=== PATIENT | female | born 1945 | race Caucasian/White ===

== ENCOUNTER 2018-09-01 13:13 | Inpatient (IN) | payer MEDICARE, MEDICAID ==
[2018-09-01 14:08] LABS: Mean Corpuscular HGB CONC 32.6 g/dL (32.0-36.0); Mean Corpuscular Hemoglobin 31.2 pg (27.0-31.0); Mean Corpuscular Volume 95.7 fL (78.0-98.0); Platelet Count 143 thou/uL (130-400); RBC Distribution Width 12.5 % (11.5-14.5); Red Blood Cell (RBC) Count 3.83 mill/uL (4.20-5.40); White Blood Cell (WBC) Count 11.3 thou/uL (4.8-10.8)
[2018-09-01 14:27] LABS: ALT (SGPT) 24 U/L (8-55); AST (SGOT) 57 U/L (5-34); Alkaline Phosphatase 87 U/L (40-150); Anion Gap 14 mmol/L (10-20); BUN (Urea Nitrogen) 83 mg/dL (9.8-20.1); Band 23 % (5-11); Bilirubin, Total 0.3 mg/dL (0.2-1.2); Calc. Creatinine Clearance 0 mL/min (70-130); Carbon Dioxide 23 mmol/L (23-31); Chloride 111 mmol/L (98-107); Estimated GFR-MDRD 21; Globulin 3.3 g/dL (2.4-3.5); Glucose 294 mg/dL (83-110); Lymphocytes 5 % (21-51); MDiff Complete? YES; Metamyelocyte 2 % (0-0); Monocytes 10 % (0-10); Neutrophil 57 % (42-75); Platelet Morphology Comment Appears Adequate; Potassium 4.4 mmol/L (3.5-5.1); Protein, Total 6.3 g/dL (6.0-8.3); RBC Morphology Normal; Reactive Lymphocytes 2 % (0-10); Sodium 144 mmol/L (136-145)
[2018-09-01] MEDS ORDERED: Dextrose 50% Abboject 50 ML SYRINGE SLOW IVP PRN (17:05)
[2018-09-01] MEDS ORDERED: Acetaminophen 325 MG TAB PO PRN (17:05)
[2018-09-01] MEDS ORDERED: Bisacodyl 5 MG TAB PO PRN (17:05)
[2018-09-01] MEDS ORDERED: Dextrose 5% in Water 1,000 ML IV PRN (17:05)
[2018-09-01] MEDS ORDERED: Ziprasidone 20 MG VIAL IM PRN (17:16)
[2018-09-01] MEDS ORDERED: Sterile Water 10 ML VIAL FS PRN (17:24)
[2018-09-01] MEDS ORDERED: Ziprasidone 20 MG VIAL ONE (17:32)
--- NOTE | 2018-09-01 17:34 | HP ---
PRIMARY CARE PROVIDER: Dr. Quincy Mcneill. CHIEF COMPLAINT: Abnormal labs. HISTORY OF PRESENT ILLNESS: Ms. Colon is a pleasant 73-year-old lady, who was seen at [facility] on September 01, 2018 following transfer from [facility] in [place]. The patient is unable to provide any significant history. Collateral history was obtained from review of medical charts, discussion with emergency room physician and discussion with the patient's son over the telephone. The patient's son reports that Ms. Colon has been at [facility] for the last few years. He reports that she got a call today that her blood work was abnormal and she was being sent to the emergency room at [facility] in [place]. According to paperwork accompanying Ms. Colon, she was found to have a blood urea nitrogen of 94 and creatinine of 2.54. Her blood urea nitrogen and creatinine were normal in September 2017. REVIEW OF SYSTEMS: Could not be completed because the patient is not responding verbally. PAST MEDICAL HISTORY: Arthritis, dementia, depression, diabetes mellitus, gastroesophageal reflux disease, herpes simplex, dyslipidemia, hypertension, and renal disorder. PSYCHIATRIC HISTORY: Schizophrenia. PAST SURGICAL HISTORY: Tubal ligation. SOCIAL HISTORY: No history of tobacco use, alcohol use, or recreational drug use. FAMILY HISTORY: Could not obtain. CODE STATUS: I discussed her code status with her son, who is also her medical power of associate professor of archaeology. He reports that she is full code. ALLERGIES: NO KNOWN DRUG ALLERGIES. CURRENT MEDICATIONS: 1. Celexa 20 mg daily. 2. UTI-Stat 30 mL daily. 3. Loratadine 10 mg daily as needed. 4. Depakote 500 mg 2 times a day. 5. Mylanta 10 mL every 2 hours as needed. 6. Haldol 1.25 mL IM every 30 days. 7. Tramadol 300 mg in the morning. 8. Fenofibrate 145 mg daily. 9. Zetia 10 mg daily. 10. Benztropine 1 mg 2 times a day. 11. Losartan 50 mg daily. 12. Amlodipine 5 mg daily. 13. Folic acid 1 mg daily. 14. Trazodone 150 mg at bedtime. 15. Lipitor 20 mg at bedtime. 16. Ketotifen one drop to both eyes once daily. PHYSICAL EXAMINATION: GENERAL: On examination, Ms. Colon is awake and alert, not in acute distress. VITAL SIGNS: Blood pressure is 111/93, pulse 84, respiratory rate 20, and oxygen saturation 95% on room air. She is afebrile. EYES: No scleral icterus. No conjunctival pallor. ENT: Dry mucosal membranes. No oropharyngeal erythema or exudates. NECK: Supple, nontender. Trachea is midline. RESPIRATORY: Accessory muscles of breathing are not active. Chest wall movements are symmetric bilaterally. LUNGS: Clear to auscultation without wheeze, rhonchi, or crepitations. CARDIOVASCULAR: S1 and S2 are heard, regular. Peripheral pulses are palpable. No carotid bruit. No pericardial rub. ABDOMEN: Soft, nontender. Bowel sounds heard. No hepatomegaly. NEUROLOGIC: Full neurologic examination not possible secondary to the patient's noncooperation. No facial droop. Deep tendon reflexes 2+. Plantars downgoing bilaterally. MUSCULOSKELETAL: The patient is moving all 4 extremities. SKIN: No rashes or subcutaneous nodules. LYMPHATIC: No cervical lymphadenopathy. PSYCHIATRIC: Normal mood, unable to assess orientation to person, place, or time. LABORATORY DATA: Ms. Colon's labs and investigations were reviewed. A 12- lead electrocardiogram was normal. She had a chest x-ray that was unremarkable. However, CT scan of the abdomen and pelvis showed bilateral hydroureteronephrosis without an obstructing renal or ureteral calculi identified. She also had prominent distention of the urinary bladder. Radiologist recommends correlation for bladder outlet obstruction. She was also found to have right lower lobe airspace disease suspicious for pneumonia and/or aspiration. She has leukocytosis with 12,800 white cells, of which 10,200 granulocytes. Platelet count is 145,000. Blood urea nitrogen is 91, creatinine 2.68. Lactic acid is elevated at 3.2. Urinalysis is positive for large amount of leukocyte esterase and bacteria. ASSESSMENT AND PLAN: Ms. Colon is a pleasant 73-year-old lady, who was seen at [facility] on September 01, 2018. Her problem list includes : 1. Sepsis: Ms. Colon is presenting with sepsis, most likely secondary to urinary tract infection as well as pneumonia. She will be admitted to the hospital for further management. 2. Urinary tract infection: The patient has received ceftriaxone and levofloxacin at [facility], which I will continue. 3. We will await urine cultures. 4. Pneumonia: We will treat the patient with ceftriaxone, levofloxacin, and vancomycin. 5. Acute kidney injury: Most likely postrenal, given the bilateral hydroureteronephrosis seen on CT scan. We will consult Urology Service for opinion and help with management. 6. Diabetes mellitus type 2: We will start Accu-Cheks and insulin sliding scale. 7. Dyslipidemia: We will continue home medications. 8. Hypertension: We will monitor vital signs and titrate antihypertensives as needed. Many thanks for allowing me to participate in your patient's care. Please feel free to contact me with any questions or concerns. LEVEL OF RISK: Moderate. LEVEL OF COMPLEXITY: Moderate. Job ID: [id number] MTDD
[2018-09-01] MEDS: Sodium Chloride 0.9% 1,000 ML IV SCH (17:46)
[2018-09-01 18:02] LABS: Lactic Acid 2.6 mmol/L (0.5-2.2)
[2018-09-01] MEDS ORDERED: cefTRIAXone\\ROCEPHIN 1 GM VIAL ONE (23:58)
[2018-09-02] MEDS: cefTRIAXone\\ROCEPHIN 1 GM in Sodium Chloride 0.9% 100 ML IVPB SCH ×2 (00:29→19:12)
--- NOTE | 2018-09-02 05:09 | CON ---
DATE OF CONSULTATION: 09/01/2018 REASON FOR CONSULTATION: 1. Urinary retention. 2. Apparent obstructive uropathy associated with renal insufficiency. 3. Postmenopausal status, not on hormone replacement therapy. HISTORY OF PRESENT ILLNESS: Ms. Evelyn Colon is a 73-year-old white female patient, brought in from the [facility] in [place]. The patient was seen in the [facility] Emergency Room earlier in the day and ultimately brought to the [facility] for further evaluation and treatment. The patient had some routine lab work which was done showing elevated blood urea nitrogen of 94 and creatinine of 2.54. She had normal laboratory work on 09/14/2017. She does have extensive medical history including arthritis, dementia, schizophrenia, herpes, some type of renal disorder, and diabetes mellitus. She also apparently has a diagnosis of bipolar disorder. The patient herself is not very informative, but I have gleaned most of what I know about her from review of [facility] and [facility] records. I did glean a small amount of information from physical examination of the patient as well. PAST MEDICAL HISTORY: 1. Arthritis. 2. Dementia. 3. Depression. 4. Diabetes mellitus. 5. Gastroesophageal reflux disease. 6. Herpes simplex. 7. Hyperlipidemia. 8. Hypertension. 9. Apparent acute renal disorder. 10. Schizophrenia. PAST SURGICAL HISTORY: Includes only a tubal ligation procedure. SOCIAL HISTORY: The patient resides in the [facility] in [place]. Her smoking status is completely unknown. The patient is not currently user of alcohol or drugs other than those that are prescribed as our facility does not allow that. FAMILY MEDICAL HISTORY: Unknown and noncontributory. GYNECOLOGIC HISTORY: Unknown. The patient is postmenopausal. ALLERGIES: NO KNOWN DRUG ALLERGIES. MEDICATIONS: Complete medication list includes the following, 1. Celexa 20 mg p.o. daily. 2. UTI-Stat 30 mL oral daily. 3. Loratadine 10 mg p.o. daily. 4. Depakote 500 mg twice daily. 5. Mylanta chewable every 2 hours p.r.n. upset stomach. 6. Haldol 125 mg IM every 30 days. 7. Tramadol 300 mg p.o. daily. 8. Fenofibrate 145 mg oral daily in the evening. 9. Zetia 10 mg p.o. at bedtime. 10. Benztropine 1 mg p.o. twice daily. 11. Losartan 50 mg p.o. daily. 12. Amlodipine 5 mg p.o. daily. 13. Folic acid 1 mg per day. 14. Trazodone 150 mg p.o. daily. 15. Lipitor 20 mg p.o. daily. 16. Ketotifen fumarate ophthalmic drops 0.25% one drop to each eye once daily. PHYSICAL EXAMINATION: VITAL SIGNS: Blood pressure is 100/68, pulse is 91, respirations 18, O2 saturations 97% on room air, with a normal oral temperature of 98.0. HEAD, EYES, EARS, NOSE, AND THROAT: Extraocular movements are intact. Sclerae are anicteric. Oropharynx essentially clear. The patient is edentulous. She is able to talk, but not able to make much in the way of intelligent speech from her. NECK: Supple. LUNGS: Clear to auscultation bilaterally. CARDIAC: There is a regular rate and rhythm. traffic monitor specialist shows a sinus rhythm. There is no evidence of a pacemaker implant or previous coronary bypass. ABDOMEN: Soft, obese, and nontender. Reportedly, the patient underwent previous tubal ligation operation. I am unable to find a scar associated with that. The umbilicus is without lesion. I do not appreciate umbilical hernia. There is no Pfannenstiel type incision or other scar evidence. Percussion reveals increased resonance in all four quadrants. PELVIC: A Turner catheter is found in place, it is draining straw-colored clear urine with a good productive rate, produced over 2 L since catheter placement consistent with the patient's retention history and findings on previous CT scan. There is no gross blood, purulence, or other abnormalities to the urine. No particulates observed. Periurethrally, there is some redness consistent with urethral caruncle or urethral prolapse even. The patient has postmenopausal changes to the vagina as well. Digital rectal examination is not performed. EXTREMITIES: Do not appear to be edematous. There is no evidence of pitting edema. SKIN: The patient's skin is relatively thin. She appears to be having reasonably good health cares. I am not appreciating any significant skin breakdowns distally. LABORATORY STUDIES: I reviewed the results from the [facility] in [place], which shows admission glucose there of 392, blood urea nitrogen of 91, and creatinine of 2.68. This is consistent with the patient's previous elevation of her glucose at 182 last year. Blood urea nitrogen significantly increased from 18 last year and creatinine significantly increased from the 1.05 value of last year. Urinalysis was performed in the emergency department of [facility] and urine gravity was 1.010. The pH of 5.5. There was 500 mg/dL of glucose. The blood in the urine showed trace value with 1 to 2 red cells seen under microscopic evaluation, greater than 50 white cells per high-power field also observed. Squamous epithelial cells were seen rarely and urine bacteria was identified as moderate. Hematologic profile there showed a white count of 12.8, hemoglobin of 12.2, and hematocrit of 37.3. ASSESSMENT: 1. Urinary retention, likely secondary to multifactorial causes. In this particular patient, attention to the patient's bowel program and further low estrogen status is indicated. The patient currently has indwelling Turner catheter is largely resolved except for postobstructive diuresis, which needs to be evaluated for. I would recommend leaving this Turner catheter in place at discharge and this maybe removed in my office. Over the short term, postobstructive diuresis should be assessed and fluid replacement should be performed at least a rate of 0.5 mL per mL of voided urine. The patient's magnesium level may drop and magnesium assessment is indicated. 2. Postmenopausal atrophic vaginitis. The patient should be placed on Premarin cream to be applied around the urethral line nightly basis. This should be followed at discharge and for life. 3. Assessment of outlet obstruction. This is likely urethral stricture, secondary to low estrogen status. The patient may follow up in my clinic for cystoscopic assessment. She may follow up in my office in 2 to 3 weeks after she has had appropriate levels of estrogen applied. 4. Concerns for urinary tract infection based on urinalysis from earlier today. Culture of the patient's urine may be illuminating; however, I am not appreciating much in the way of purulence on the patient's current urine production. Over 70 minutes of was spent in evaluation of this patient today. Job ID: [id number]
[2018-09-02 05:13] LABS: Anion Gap 12 mmol/L (10-20); BUN (Urea Nitrogen) 51 mg/dL (9.8-20.1); Calc. Creatinine Clearance 35 mL/min (70-130); Calcium 8.6 mg/dL (7.8-10.44); Carbon Dioxide 24 mmol/L (23-31); Chloride 110 mmol/L (98-107); Estimated GFR-MDRD 32; Glucose 207 mg/dL (83-110); Potassium 3.8 mmol/L (3.5-5.1); Sodium 142 mmol/L (136-145)
[2018-09-02 05:23] LABS: Band 19 % (5-11); Hemoglobin 10.7 g/dL (12.0-16.0); Lymphocytes 14 % (21-51); MDiff Complete? YES; Mean Corpuscular HGB CONC 33.1 g/dL (32.0-36.0); Mean Corpuscular Hemoglobin 31.7 pg (27.0-31.0); Mean Corpuscular Volume 95.8 fL (78.0-98.0); Mean Platelet Volume 9.6 fL (7.4-10.4); Metamyelocyte 4 % (0-0); Monocytes 11 % (0-10); Neutrophil 52 % (42-75); Platelet Count 142 thou/uL (130-400); Platelet Morphology Comment Appears Adequate; RBC Distribution Width 12.6 % (11.5-14.5); Red Blood Cell (RBC) Count 3.38 mill/uL (4.20-5.40); White Blood Cell (WBC) Count 12.3 thou/uL (4.8-10.8)
[2018-09-02] MEDS: Sodium Chloride 0.9% 1,000 ML IV SCH ×2 (08:32→20:25)
--- NOTE | 2018-09-02 14:24 | PDOC.PN ---
- Subjective Encounter Start Date: 09/02/18 Encounter Start Time: 12:00 CC; ABNORMAL LABS SUBJECTIVE; PATIENT SEEN AND EVAL. SHE IS A POOR HISTORIAN DUE TO SCHIZOPHRENIA. PER NURSE, NO ACUTE EVENTS OVERNIGHT. ROS; LIMITED DUE TO SCHIZOPHRENIA - Objective Resuscitation Status - Order Detail: 09/01/18 17:05 Resuscitation Status Routine Resuscitation Status: FULL: Full Resuscitation Discussed with: earle DUMONT Reviewed: Yes Vital Signs & Weight: Vital Signs (12 hours) Temp Pulse Resp BP Pulse Ox 09/02/18 13:18 98.3 F 62 18 103/48 L 98 Weight Weight 154 lb 8.705 oz Result Diagrams: 09/02/18 04:04 09/02/18 04:04 Additional Labs: Accuchecks 09/02/18 13:38 POC Glucose 189 H Radiology Reviewed by me: Yes EKG Reviewed by me: Yes Phys Exam - Physical Examination HEENT: PERRLA, moist MMs, oral pharynx no lesions Neck: no nodes, no JVD, supple Respiratory: no wheezing, no rales, no rhonchi, clear to auscultation bilateral Cardiovascular: RRR, no significant murmur, no rub Gastrointestinal: soft, non-tender, no distention Musculoskeletal: no edema, pulses present Neurological: non-focal, normal sensation Deviation from normal: ALERT AND ORIENTED IN PERSON. DECREASED ATTENTION Skin: no rash, normal turgor, cap refill <2 seconds Dx/Plan (1) Sepsis secondary to UTI Code(s): A41.9 - SEPSIS, UNSPECIFIED ORGANISM; N39.0 - URINARY TRACT INFECTION, SITE NOT SPECIFIED Status: Acute Plan: CONTINUE CURRENT ABx. MONITOR CULTURES (2) Pneumonia Code(s): J18.9 - PNEUMONIA, UNSPECIFIED ORGANISM Status: Acute Plan: CAP. CONTINUE ROCEPHIN. (3) KAI (acute kidney injury) Code(s): N17.9 - ACUTE KIDNEY FAILURE, UNSPECIFIED Status: Acute Plan: POSTRENAL. IMPROVING (4) Obstructive uropathy Code(s): N13.9 - OBSTRUCTIVE AND REFLUX UROPATHY, UNSPECIFIED Status: Acute Plan: HYDRONEPHROSIS. UROLOGY FOLLOWS. CONTINUE MUSE (5) Schizophrenia Code(s): F20.9 - SCHIZOPHRENIA, UNSPECIFIED Status: Chronic Plan: CHRONIC BUT STABLE. NO AGITATION. SITTER. PSYCH MEDS (6) GERD (gastroesophageal reflux disease) Code(s): K21.9 - GASTRO-ESOPHAGEAL REFLUX DISEASE WITHOUT ESOPHAGITIS Status: Chronic (7) Anemia Code(s): D64.9 - ANEMIA, UNSPECIFIED Status: Chronic Qualifiers: Anemia type: unspecified type Qualified Code(s): D64.9 - Anemia, unspecified (8) DM type 2 (diabetes mellitus, type 2) Status: Chronic (9) Essential hypertension Code(s): I10 - ESSENTIAL (PRIMARY) HYPERTENSION Status: Chronic (10) Dementia Code(s): F03.90 - UNSPECIFIED DEMENTIA WITHOUT BEHAVIORAL DISTURBANCE Status: Chronic - Plan cont current plan of care CONTINUE CURRENT CARE. MONITOR CULTURES. CODE; FULL CORE; SCD DISP; MED SURG PROG; GUARDED CLINICAL STATUS; GUARDED EXPECTED DISCHARGE; TBD TOTAL TIME SPENT; 35 MINUTES DATE OF SERVICE; 09/02/2018
[2018-09-02 14:26] LABS: Vancomycin, Trough 8.4 ug/mL
[2018-09-02] MEDS ORDERED: Prevnar 13-Val Conj/PF 0.5 ML SYRINGE IM ONE (14:45)
[2018-09-02 15:33] LABS: Hemoglobin 11.1 g/dL (12.0-16.0); Mean Corpuscular HGB CONC 32.9 g/dL (32.0-36.0); Mean Corpuscular Hemoglobin 31.4 pg (27.0-31.0); Mean Corpuscular Volume 95.3 fL (78.0-98.0); Mean Platelet Volume 9.1 fL (7.4-10.4); Platelet Count 154 thou/uL (130-400); RBC Distribution Width 12.5 % (11.5-14.5); Red Blood Cell (RBC) Count 3.55 mill/uL (4.20-5.40); White Blood Cell (WBC) Count 12.9 thou/uL (4.8-10.8)
[2018-09-02 15:52] LABS: ALT (SGPT) 30 U/L (8-55); AST (SGOT) 63 U/L (5-34); Albumin 2.6 g/dL (3.4-4.8); Alkaline Phosphatase 70 U/L (40-150); Anion Gap 11 mmol/L (10-20); BUN (Urea Nitrogen) 38 mg/dL (9.8-20.1); Bilirubin, Total 0.4 mg/dL (0.2-1.2); Calc. Creatinine Clearance 41 mL/min (70-130); Calcium 8.5 mg/dL (7.8-10.44); Carbon Dioxide 24 mmol/L (23-31); Chloride 110 mmol/L (98-107); Estimated GFR-MDRD 38; Globulin 2.8 g/dL (2.4-3.5); Glucose 185 mg/dL (83-110); Potassium 4.2 mmol/L (3.5-5.1); Protein, Total 5.4 g/dL (6.0-8.3); Sodium 141 mmol/L (136-145)
[2018-09-02 15:57] LABS: Band 15 % (5-11); Lymphocytes 17 % (21-51); MDiff Complete? YES; Metamyelocyte 1 % (0-0); Monocytes 5 % (0-10); Myelocyte 2 % (0-0); Neutrophil 59 % (42-75); Platelet Morphology Comment Appears Adequate; Polychromasia SLIGHT = 2-3 cells (100X) (0-2/hpf)
[2018-09-02] MEDS: Vancomycin HCl 1 GM in Premix Bag 1 BAG IVPB SCH (19:15)
[2018-09-02] MEDS: traZODone HCl 150 MG TAB PO SCH (20:22)
[2018-09-02] MEDS: Ezetimibe 10 MG TAB PO SCH (20:22)
[2018-09-02] MEDS: Atorvastatin Calcium 20 MG TAB PO SCH (20:22)
[2018-09-02] MEDS: Ketotifen Fumarate 0.025% Ophth Soln 5 ml Bottle EA EYE SCH (20:22)
[2018-09-02] MEDS ORDERED: Amoxicillin/Potassium Clav 875 MG TAB PO SCH (21:30)
[2018-09-02] MEDS: Estrogens, Conjugated 30 GM TUBE VAG SCH (22:12)
--- NOTE | 2018-09-03 03:39 | CON ---
DATE OF CONSULTATION: 09/01/2018 DATE: Date of initial consultation is 09/01/2018, date of progress note is 09/02/2018. REASON FOR CONSULTATION: 1. Urinary retention. 2. Apparent obstructive uropathy with associated renal insufficiency. 3. Urinary tract infection. 4. Postmenopausal status, not on hormonal replacement therapy. BRIEF HISTORY: Ms. Evelyn Colon is a 73-year-old white female, brought in from the [facility] in [place]. She was seen in the [facility] Emergency Department earlier in the day on 09/01/2018, and had a urine culture drawn there, which has grown out enterococcus. The patient had urinary retention with very distended bladder. A Turner catheter was placed and this has resolved the patient's acute renal insufficiency. At the present time, the patient has some signs and symptoms of postobstructive diuresis and has been diuresing well. Her electrolytes are being followed. PHYSICAL EXAMINATION: VITAL SIGNS: The patient is afebrile with current temperature of 98.3, pulse 79, respirations 18, O2 saturation on room air is 90%, blood pressure is 108/51. GENERAL: This is a pleasant white female with dementia. She appears a little more lucid today than yesterday. HEAD, EYES, EARS, NOSE, AND THROAT: Extraocular movements are intact. Sclerae anicteric. Oropharynx is clear. NECK: Supple. LUNGS: Clear to auscultation bilaterally. CARDIAC: Regular rhythm of about 79. ABDOMEN: Soft, obese, and nontender. Percussion reveals still some increased resonance. The patient has been tolerating a diet. PELVIC: Indwelling Turner catheter remains in place and is now draining essentially clear urine with no evidence of a blood clot particulates or purulence. LABORATORY STUDIES: The urine culture obtained at the [facility] emergency Department demonstrates the presence of enterococcus species in the patient's urine. The patient's electrolytes improved significantly. Blood urea nitrogen down to 38 from admission value of 83, creatinine down to 1.36 from admission creatinine of 2.3. Hematologic profile shows white count currently standing at 12.9 with a hemoglobin of 11.1 and hematocrit of 33.8. ASSESSMENT AND PLAN: 1. This patient has urethral outlet issue, likely urethral stricture disease secondary to postmenopausal status and should present to clinic for cystoscopic assessment, possible urethral calibration. 2. Postmenopausal status, not on estrogen products. I am recommending urethral or periurethral application of Premarin or Estrace cream at least twice a day. 3. Followup: The patient should follow up in my office for cystoscopy and possible calibration as outlined above. 4. Turner catheter. DISPOSITION: Plan would be to leave the patient's current Turner catheter in place at discharge. Infectious disease concerns: The patient has been on Rocephin for her presumed UTI, although urine is quite clear and has responded to simple drainage as well as ceftriaxone administration. The patient's enterococcus infection could be covered by ampicillin or an extended spectrum penicillin medications such as Augmentin. I am recommending due to the possibility of tissue involvement, this patient will be given a 2-week course of Augmentin. TIME SPENT: Over 35 minutes of consultation assessment time was spent in evaluation of this patient today. Job ID: [id number]
[2018-09-03 06:38] LABS: Mean Corpuscular HGB CONC 32.2 g/dL (32.0-36.0); Mean Corpuscular Volume 96.3 fL (78.0-98.0); Mean Platelet Volume 9.1 fL (7.4-10.4); Platelet Count 179 thou/uL (130-400); RBC Distribution Width 12.7 % (11.5-14.5); Red Blood Cell (RBC) Count 3.89 mill/uL (4.20-5.40)
[2018-09-03 06:59] LABS: ALT (SGPT) 39 U/L (8-55); AST (SGOT) 75 U/L (5-34); Albumin 2.6 g/dL (3.4-4.8); Alkaline Phosphatase 73 U/L (40-150); Anion Gap 12 mmol/L (10-20); BUN (Urea Nitrogen) 28 mg/dL (9.8-20.1); Bilirubin, Total 0.4 mg/dL (0.2-1.2); Calc. Creatinine Clearance 45 mL/min (70-130); Calcium 8.6 mg/dL (7.8-10.44); Carbon Dioxide 21 mmol/L (23-31); Chloride 112 mmol/L (98-107); Estimated GFR-MDRD 43; Globulin 3.1 g/dL (2.4-3.5); Glucose 184 mg/dL (83-110); Magnesium 1.8 mg/dL (1.6-2.6); Protein, Total 5.7 g/dL (6.0-8.3); Sodium 141 mmol/L (136-145)
[2018-09-03 07:36] LABS: Band 23 % (5-11); Lymphocytes 19 % (21-51); MDiff Complete? YES; Metamyelocyte 3 % (0-0); Monocytes 6 % (0-10); Myelocyte 6 % (0-0); Neutrophil 40 % (42-75); Platelet Morphology Comment Appears Adequate; Polychromasia SLIGHT = 2-3 cells (100X) (0-2/hpf); Reactive Lymphocytes 3 % (0-10)
[2018-09-03] MEDS: Amoxicillin/Potassium Clav 875 MG TAB PO SCH ×2 (08:32→20:21)
[2018-09-03] MEDS: Amlodipine 5 MG TAB PO SCH (08:32)
[2018-09-03] MEDS: Ketotifen Fumarate 0.025% Ophth Soln 5 ml Bottle EA EYE SCH ×2 (08:35→20:21)
[2018-09-03] MEDS: Estrogens, Conjugated 30 GM TUBE VAG SCH ×2 (08:36→20:20)
[2018-09-03] MEDS: Losartan 25 MG TAB PO SCH (08:37)
[2018-09-03] MEDS: Sodium Chloride 0.9% 1,000 ML IV SCH (08:38)
[2018-09-03] MEDS: Folic Acid 1 MG TAB PO SCH (08:38)
[2018-09-03] MEDS: Citalopram 20 MG TAB PO SCH (08:38)
[2018-09-03] MEDS: Fenofibrate Nanocrystallized 145 MG TAB PO SCH (08:38)
--- NOTE | 2018-09-03 09:52 | PDOC.PN ---
- Subjective Encounter Start Date: 09/03/18 Encounter Start Time: 07:40 CC; ABNORMAL LABS SUBJECTIVE; PATIENT SEEN AND EVAL. NO COMPLAINTS. PER NURSE, NO ACUTE EVENTS OVERNIGHT. ROS; LIMITED DUE TO DEMENTIA AND SCHIZOPHRENIA - Objective Resuscitation Status - Order Detail: 09/01/18 17:05 Resuscitation Status Routine Resuscitation Status: FULL: Full Resuscitation Discussed with: earle DUMONT Reviewed: Yes Vital Signs & Weight: Vital Signs (12 hours) Temp Pulse Resp BP BP Pulse Ox 09/03/18 08:32 71 137/70 09/03/18 08:00 98.2 F 71 16 131/70 97 09/03/18 04:00 98.6 F 71 20 121/61 91 L 09/02/18 22:40 96.4 F L 81 20 144/67 H 93 L Weight Weight 154 lb I&O: 09/02/18 09/03/18 09/04/18 06:59 06:59 06:59 Intake Total 1200 Output Total 1300 Balance -100 Result Diagrams: 09/03/18 06:12 09/03/18 06:12 Additional Labs: Accuchecks 09/03/18 09/02/18 09/02/18 05:57 20:05 13:38 POC Glucose 178 H 191 H 189 H Radiology Reviewed by me: Yes EKG Reviewed by me: Yes Phys Exam - Physical Examination HEENT: PERRLA, moist MMs, sclera anicteric, oral pharynx no lesions Neck: no nodes, no JVD, supple Respiratory: no wheezing, no rales, no rhonchi Cardiovascular: RRR, no significant murmur, no rub Gastrointestinal: soft, non-tender, no distention Musculoskeletal: no edema, pulses present Neurological: non-focal, normal sensation, moves all 4 limbs Deviation from normal: ALERT AND ORIENTED IN PERSON AND PLACE ONLY. ACCELERATED THOUGHTS Skin: no rash, normal turgor, cap refill <2 seconds Dx/Plan (1) Sepsis secondary to UTI Code(s): A41.9 - SEPSIS, UNSPECIFIED ORGANISM; N39.0 - URINARY TRACT INFECTION, SITE NOT SPECIFIED Status: Acute Plan: ENTEROCOCCUS. CONTINUE ORAL AUGMENTIN FOR 2 WEEKS PER UROLOGY RECS. IMPROVING (2) Pneumonia Code(s): J18.9 - PNEUMONIA, UNSPECIFIED ORGANISM Status: Acute Plan: CAP. CONTINUE LEVAQUIN. (3) KAI (acute kidney injury) Code(s): N17.9 - ACUTE KIDNEY FAILURE, UNSPECIFIED Status: Acute Plan: POSTRENAL. IMPROVING AFTER MUSE PLACEMENT. (4) Obstructive uropathy Code(s): N13.9 - OBSTRUCTIVE AND REFLUX UROPATHY, UNSPECIFIED Status: Acute Plan: UROLOGY RECOMMENDS TO KEEP MUSE IN UPOON DISCHARGE AND OUTPATIENT FOLLOW UP (5) Schizophrenia Code(s): F20.9 - SCHIZOPHRENIA, UNSPECIFIED Status: Chronic (6) GERD (gastroesophageal reflux disease) Code(s): K21.9 - GASTRO-ESOPHAGEAL REFLUX DISEASE WITHOUT ESOPHAGITIS Status: Chronic (7) Anemia Code(s): D64.9 - ANEMIA, UNSPECIFIED Status: Chronic Qualifiers: Anemia type: unspecified type Qualified Code(s): D64.9 - Anemia, unspecified (8) DM type 2 (diabetes mellitus, type 2) Status: Chronic (9) Essential hypertension Code(s): I10 - ESSENTIAL (PRIMARY) HYPERTENSION Status: Chronic (10) Dementia Code(s): F03.90 - UNSPECIFIED DEMENTIA WITHOUT BEHAVIORAL DISTURBANCE Status: Chronic - Plan cont current plan of care ANTIBIOTICS FOR UTI CHANGED BY UROLOGY. CONTINUE LEVAQUIN FOR PNEUMONIA. WBC SLIGHTLY WORSE. NO FEVER. CODE; FULL CORE; SCD DISP; MED SURG PROG; GUARDED CLINICAL STATUS; GUARDED EXPECTED DISCHARGE; ONCE WBC NORMAL AND NO FEVER TOTAL TIME SPENT; 30 MINUTES DATE OF SERVICE; 09/03/2018
[2018-09-03] MEDS: Vancomycin HCl 1 GM in Premix Bag 1 BAG IVPB SCH (14:25)
[2018-09-03 14:50] LABS: Vancomycin, Trough 12.9 ug/mL
[2018-09-03] MEDS: HumaLOG 300 UNITS/3 ML VIAL SC PRN (18:02)
[2018-09-03] MEDS: traZODone HCl 150 MG TAB PO SCH (20:21)
[2018-09-03] MEDS: Atorvastatin Calcium 20 MG TAB PO SCH (20:21)
[2018-09-03] MEDS: Ezetimibe 10 MG TAB PO SCH (20:21)
[2018-09-04] MEDS: Sodium Chloride 0.9% 1,000 ML IV SCH ×2 (02:21→16:16)
[2018-09-04 05:50] LABS: ALT (SGPT) 50 U/L (8-55); AST (SGOT) 81 U/L (5-34); Albumin 2.5 g/dL (3.4-4.8); Alkaline Phosphatase 64 U/L (40-150); Anion Gap 11 mmol/L (10-20); BUN (Urea Nitrogen) 15 mg/dL (9.8-20.1); Bilirubin, Total 0.5 mg/dL (0.2-1.2); Calc. Creatinine Clearance 51 mL/min (70-130); Calcium 8.4 mg/dL (7.8-10.44); Carbon Dioxide 21 mmol/L (23-31); Chloride 113 mmol/L (98-107); Estimated GFR-MDRD 49; Globulin 2.9 g/dL (2.4-3.5); Glucose 154 mg/dL (83-110); Potassium 3.7 mmol/L (3.5-5.1); Protein, Total 5.4 g/dL (6.0-8.3); Sodium 141 mmol/L (136-145)
[2018-09-04 05:52] LABS: Band 6 % (5-11); Eosinophils 1 % (0-10); Lymphocytes 17 % (21-51); MDiff Complete? YES; Mean Corpuscular HGB CONC 32.8 g/dL (32.0-36.0); Mean Corpuscular Hemoglobin 31.4 pg (27.0-31.0); Mean Corpuscular Volume 95.6 fL (78.0-98.0); Mean Platelet Volume 8.7 fL (7.4-10.4); Metamyelocyte 4 % (0-0); Monocytes 13 % (0-10); Myelocyte 6 % (0-0); Neutrophil 53 % (42-75); Platelet Count 228 thou/uL (130-400); RBC Distribution Width 12.5 % (11.5-14.5); White Blood Cell (WBC) Count 15.4 thou/uL (4.8-10.8)
[2018-09-04] MEDS: Amoxicillin/Potassium Clav 875 MG TAB PO SCH ×2 (08:28→20:38)
[2018-09-04] MEDS: Losartan 25 MG TAB PO SCH (08:28)
[2018-09-04] MEDS: Amlodipine 5 MG TAB PO SCH (08:28)
[2018-09-04] MEDS: Folic Acid 1 MG TAB PO SCH (08:29)
[2018-09-04] MEDS: Estrogens, Conjugated 30 GM TUBE VAG SCH ×2 (08:29→20:37)
[2018-09-04] MEDS: Citalopram 20 MG TAB PO SCH (08:29)
[2018-09-04] MEDS: Ketotifen Fumarate 0.025% Ophth Soln 5 ml Bottle EA EYE SCH ×2 (08:29→20:37)
[2018-09-04] MEDS: Fenofibrate Nanocrystallized 145 MG TAB PO SCH (08:29)
--- NOTE | 2018-09-04 13:31 | RAD ---
SINGLE VIEW OF THE CHEST: COMPARISON: None. HISTORY: Pneumonia. FINDINGS: Single view of the chest shows a normal sized cardiomediastinal silhouette. There is no evidence of c onsolidation, mass, or pleural effusion. Degenerative changes are seen in the spine and shoulders. IMPRESSION: No evidence of acute cardiopulmonary disease. POS: TPC
--- NOTE | 2018-09-04 13:49 | PRG ---
DATE OF SERVICE: 09/04/2018 SUBJECTIVE: The patient is seen and examined at the bedside. She complains about her not being able to eat the food she was given. She does not have any dentures. Her food needs to be most likely pureed. OBJECTIVE: VITAL SIGNS: Blood pressure is 156/77, pulse is 89, respiratory rate is 16, O2 saturation is 97% on room air, temperature is 98.0, maximal temperature is 99.2. HEENT: Her head is atraumatic and normocephalic. Sclerae are nonicteric. Conjunctivae are palish. Oral mucosa is moist. She does not have any dentures or teeth. NECK: Supple. LUNGS: Right middle part of the lung with crackles and rales. No wheezing. HEART: S1 and S2 normal. No S3. No S4. ABDOMEN: Soft, nontender, obese. Bowel sounds are present. No organomegaly. EXTREMITIES: No clubbing, cyanosis, or edema. NEUROLOGICAL: She has quite significant dementia. She follows basic rules. She moves her all 4 extremities. There is no any motor deficit. LABORATORY DATA: Labs showed a white count of 15.4, hemoglobin 11.0, hematocrit 33.4, and platelet count is 228,000. Sodium of 141, potassium 3.7, chloride 113, CO2 of 21, BUN 15, and creatinine 1.1. Glycemia is ranging from 150 to 279. Total protein 5.4, albumin 2.5. Microbiology to be checked. It was done at [facility] Emergency Room. IMPRESSION: 1. Sepsis, most likely urinary tract infection. Preliminary report says that Enterococcus is growing. We will check on that today and tomorrow. 2. Possible pneumonia, right lung. 3. Acute kidney injury, resolved after the Turner placement. 4. Obstructive uropathy, resolved with Turner placement. 5. Schizophrenia. 6. Gastroesophageal reflux disease. 7. Anemia. 8. Diabetes mellitus, uncontrolled. 9. Essential hypertension. 10. Dementia. PLAN: I am going to stop her Levaquin at this point since she is on Augmentin from urologist for her UTI. We will continue her vancomycin until we have blood cultures done, final report most likely tomorrow. We will do the chest x-ray today and she is not hypoxic, but most likely she has some infectious process in her right lung. Job ID: [id number]
[2018-09-04] MEDS: HumaLOG 300 UNITS/3 ML VIAL SC PRN (14:09)
[2018-09-04] MEDS: Vancomycin HCl 1 GM in Premix Bag 1 BAG IVPB SCH (15:02)
[2018-09-04] MEDS: Ezetimibe 10 MG TAB PO SCH (20:38)
[2018-09-04] MEDS: Atorvastatin Calcium 20 MG TAB PO SCH (20:38)
[2018-09-04] MEDS: traZODone HCl 150 MG TAB PO SCH (20:38)
[2018-09-05 04:18] LABS: ALT (SGPT) 53 U/L (8-55); AST (SGOT) 79 U/L (5-34); Albumin 2.2 g/dL (3.4-4.8); Alkaline Phosphatase 60 U/L (40-150); Anion Gap 9 mmol/L (10-20); BUN (Urea Nitrogen) 11 mg/dL (9.8-20.1); Bilirubin, Total 0.4 mg/dL (0.2-1.2); Calc. Creatinine Clearance 63 mL/min (70-130); Calcium 8.1 mg/dL (7.8-10.44); Carbon Dioxide 22 mmol/L (23-31); Chloride 117 mmol/L (98-107); Estimated GFR-MDRD 62; Globulin 2.7 g/dL (2.4-3.5); Glucose 110 mg/dL (83-110); Potassium 3.7 mmol/L (3.5-5.1); Protein, Total 4.9 g/dL (6.0-8.3); Sodium 144 mmol/L (136-145)
[2018-09-05 05:06] LABS: Band 13 % (5-11); Eosinophils 1 % (0-10); Hemoglobin 10.3 g/dL (12.0-16.0); Lymphocytes 18 % (21-51); MDiff Complete? YES; Mean Corpuscular HGB CONC 32.5 g/dL (32.0-36.0); Mean Corpuscular Hemoglobin 30.9 pg (27.0-31.0); Mean Platelet Volume 8.1 fL (7.4-10.4); Metamyelocyte 4 % (0-0); Monocytes 9 % (0-10); Myelocyte 5 % (0-0); Neutrophil 50 % (42-75); Platelet Count 255 thou/uL (130-400); Platelet Morphology Comment Appears Adequate; RBC Distribution Width 12.6 % (11.5-14.5); Red Blood Cell (RBC) Count 3.34 mill/uL (4.20-5.40); White Blood Cell (WBC) Count 13.7 thou/uL (4.8-10.8)
[2018-09-05] MEDS: Sodium Chloride 0.9% 1,000 ML IV SCH (05:54)
[2018-09-05] MEDS: Amlodipine 5 MG TAB PO SCH (09:50)
[2018-09-05] MEDS: Citalopram 20 MG TAB PO SCH (09:53)
[2018-09-05] MEDS: Amoxicillin/Potassium Clav 875 MG TAB PO SCH ×2 (09:53→20:25)
[2018-09-05] MEDS: Fenofibrate Nanocrystallized 145 MG TAB PO SCH (09:53)
[2018-09-05] MEDS: Ketotifen Fumarate 0.025% Ophth Soln 5 ml Bottle EA EYE SCH ×2 (09:54→20:25)
[2018-09-05] MEDS: Losartan 25 MG TAB PO SCH (09:54)
[2018-09-05] MEDS: Estrogens, Conjugated 30 GM TUBE VAG SCH ×2 (09:54→20:25)
[2018-09-05] MEDS: Folic Acid 1 MG TAB PO SCH (09:54)
[2018-09-05] MEDS: HumaLOG 300 UNITS/3 ML VIAL SC PRN (12:43)
[2018-09-05 14:21] LABS: Vancomycin, Trough 14.6 ug/mL
[2018-09-05] MEDS: Vancomycin HCl 1 GM in Premix Bag 1 BAG IVPB SCH (15:58)
--- NOTE | 2018-09-05 17:47 | PRG ---
DATE OF SERVICE: 09/05/2018 SUBJECTIVE: The patient is seen and examined at the bedside. She does not have much complaints to offer. She ate all her breakfast. OBJECTIVE: VITAL SIGNS: Blood pressure is 130/70, pulse is 83, temperature is 99.4, respiratory rate is 18, and O2 saturation is 97% on room air. HEENT: Head is atraumatic and normocephalic. Sclerae are nonicteric. Oral mucosa is moist. NECK: Supple. LUNGS: Clear except for diminished breath sounds at both bases. HEART: S1 and S2. Irregularly irregular. No S3. No S4. ABDOMEN: Soft, obese, and nontender. EXTREMITIES: No clubbing, cyanosis, or edema. NEUROLOGIC: She is following my commands. She moves her all 4 extremities. LABORATORY DATA: Labs showed white count of 13.7, hemoglobin 10.3, hematocrit 31.8, and platelet count is 255. Sodium of 144, potassium 3.7, chloride 117, CO2 of 22, BUN 11, creatinine 0.89, glucose is ranging from 93 to 214, AST 79, serum total protein is 4.9, and albumin 2.2. Vancomycin trough 14.6. Chest x-ray was done yesterday, it did not show any evidence of pneumonia. IMPRESSION: 1. Sepsis, most likely due to urinary tract infection caused by Enterococcus based on the urine culture was done [facility] facility. 2. No good evidence of pneumonia on the current x-ray. 3. Acute kidney injury resolved after the Turner placement. 4. Obstructive uropathy, resolved with Turner placement. 5. Schizophrenia. 6. Gastroesophageal reflux disease. 7. Anemia. 8. Diabetes mellitus, uncontrolled. 9. Essential hypertension. 10. Dementia. PLAN: Plan is to continue her on Augmentin, which came back negative, so vancomycin will be stopped. I have ordered CBC tomorrow morning. If this is improved, she can be probably discharged back to the intermediate on Augmentin for total 2 weeks of antibiotic treatment and follow up with urologist, Dr. Garfield Gimenez, for cystoscopy and further investigation of her urinary retention and discharge her on Turner. Job ID: [id number]
[2018-09-05] MEDS: Atorvastatin Calcium 20 MG TAB PO SCH (20:25)
[2018-09-05] MEDS: Ezetimibe 10 MG TAB PO SCH (20:25)
[2018-09-05] MEDS: traZODone HCl 150 MG TAB PO SCH (20:25)
[2018-09-06 05:45] LABS: Band 13 % (5-11); Eosinophils 1 % (0-10); Hemoglobin 10.5 g/dL (12.0-16.0); Lymphocytes 17 % (21-51); MDiff Complete? YES; Mean Corpuscular HGB CONC 32.4 g/dL (32.0-36.0); Mean Corpuscular Hemoglobin 31.1 pg (27.0-31.0); Metamyelocyte 3 % (0-0); Monocytes 12 % (0-10); Myelocyte 6 % (0-0); Neutrophil 47 % (42-75); Platelet Count 291 thou/uL (130-400); Platelet Morphology Comment Appears Adequate; RBC Distribution Width 12.7 % (11.5-14.5); Reactive Lymphocytes 1 % (0-10); Red Blood Cell (RBC) Count 3.38 mill/uL (4.20-5.40); White Blood Cell (WBC) Count 17.9 thou/uL (4.8-10.8)
[2018-09-06 05:51] LABS: ALT (SGPT) 55 U/L (8-55); AST (SGOT) 69 U/L (5-34); Albumin 2.3 g/dL (3.4-4.8); Alkaline Phosphatase 58 U/L (40-150); Anion Gap 10 mmol/L (10-20); BUN (Urea Nitrogen) 9 mg/dL (9.8-20.1); Bilirubin, Total 0.5 mg/dL (0.2-1.2); Calc. Creatinine Clearance 64 mL/min (70-130); Calcium 8.5 mg/dL (7.8-10.44); Carbon Dioxide 21 mmol/L (23-31); Chloride 115 mmol/L (98-107); Estimated GFR-MDRD 65; Globulin 2.9 g/dL (2.4-3.5); Potassium 3.7 mmol/L (3.5-5.1); Protein, Total 5.2 g/dL (6.0-8.3); Sodium 142 mmol/L (136-145)
[2018-09-06 06:05] LABS: Glucose 43 mg/dL (83-110)
[2018-09-06 06:53] LABS: Lactic Acid 2.3 mmol/L (0.5-2.2)
[2018-09-06] MEDS: Fenofibrate Nanocrystallized 145 MG TAB PO SCH (09:35)
[2018-09-06] MEDS: Losartan 25 MG TAB PO SCH (09:35)
[2018-09-06] MEDS: Citalopram 20 MG TAB PO SCH (09:36)
[2018-09-06] MEDS: Amoxicillin/Potassium Clav 875 MG TAB PO SCH ×2 (09:36→21:39)
[2018-09-06] MEDS: Folic Acid 1 MG TAB PO SCH (09:36)
[2018-09-06] MEDS: Amlodipine 5 MG TAB PO SCH (09:36)
[2018-09-06] MEDS: Ketotifen Fumarate 0.025% Ophth Soln 5 ml Bottle EA EYE SCH ×2 (09:37→21:40)
[2018-09-06] MEDS: Estrogens, Conjugated 30 GM TUBE VAG SCH ×2 (09:37→21:41)
--- NOTE | 2018-09-06 15:29 | PDOC.PN ---
- Subjective Encounter Start Date: 09/06/18 Encounter Start Time: 11:00 Ms. Colon was seen today in follow-up of sepsis. She does not have any complaints, she appears comfortable. Her nurse reports some diarrhea yesterday and this morning. - Objective Resuscitation Status - Order Detail: 09/01/18 17:05 Resuscitation Status Routine Resuscitation Status: FULL: Full Resuscitation Discussed with: son Alex DUMONT Reviewed: Yes Vital Signs & Weight: Vital Signs (12 hours) Temp Pulse Resp BP Pulse Ox 09/06/18 12:00 98.5 F 92 18 134/88 96 09/06/18 09:36 81 09/06/18 07:36 99.6 F 81 16 139/64 97 09/06/18 04:00 98 F 82 20 103/57 L 92 L Weight Weight 154 lb I&O: 09/05/18 09/06/18 09/07/18 06:59 06:59 06:59 Intake Total 1080 600 Output Total 900 1400 Balance 180 -800 Result Diagrams: 09/06/18 04:51 09/06/18 04:51 Additional Labs: Accuchecks 09/06/18 09/06/18 09/06/18 10:48 06:32 05:38 POC Glucose 176 H 220 H 67 L 09/05/18 09/05/18 20:32 16:35 POC Glucose 143 H 139 H Phys Exam - Physical Examination HEENT: PERRLA Respiratory: no wheezing, no rales, no rhonchi, clear to auscultation bilateral Cardiovascular: RRR, no significant murmur, no rub Gastrointestinal: soft, positive bowel sounds + mildly distended, Musculoskeletal: no edema, pulses present Dx/Plan (1) Sepsis secondary to UTI Code(s): A41.9 - SEPSIS, UNSPECIFIED ORGANISM; N39.0 - URINARY TRACT INFECTION, SITE NOT SPECIFIED Status: Acute (2) DM type 2 (diabetes mellitus, type 2) Status: Chronic (3) Dementia Code(s): F03.90 - UNSPECIFIED DEMENTIA WITHOUT BEHAVIORAL DISTURBANCE Status: Chronic (4) Essential hypertension Code(s): I10 - ESSENTIAL (PRIMARY) HYPERTENSION Status: Chronic - Plan * UTI with sepsis- urine culture is reported to be growing enterococcus, and she has been switched to Augmentin * Her WBC count however continues to rise. She has had some diarrhea- will check a C. Diff * Acute kidney injury- resolved * re-check CBC in the AM
[2018-09-06] MEDS: HumaLOG 300 UNITS/3 ML VIAL SC PRN (18:05)
[2018-09-06] MEDS: Ezetimibe 10 MG TAB PO SCH (21:40)
[2018-09-06] MEDS: Atorvastatin Calcium 20 MG TAB PO SCH (21:41)
[2018-09-06] MEDS: traZODone HCl 150 MG TAB PO SCH (21:41)
[2018-09-07 06:22] LABS: Band 5 % (5-11); Hemoglobin 10.1 g/dL (12.0-16.0); Lymphocytes 26 % (21-51); MDiff Complete? YES; Mean Corpuscular HGB CONC 32.6 g/dL (32.0-36.0); Mean Corpuscular Hemoglobin 31.2 pg (27.0-31.0); Mean Corpuscular Volume 95.7 fL (78.0-98.0); Mean Platelet Volume 8.4 fL (7.4-10.4); Monocytes 12 % (0-10); Myelocyte 2 % (0-0); Neutrophil 55 % (42-75); Platelet Count 280 thou/uL (130-400); RBC Distribution Width 12.8 % (11.5-14.5); Red Blood Cell (RBC) Count 3.24 mill/uL (4.20-5.40); White Blood Cell (WBC) Count 15.3 thou/uL (4.8-10.8)
[2018-09-07 08:35] LABS: Lactic Acid 1.3 mmol/L (0.5-2.2)
[2018-09-07] MEDS: Losartan 25 MG TAB PO SCH (09:12)
[2018-09-07] MEDS: Amlodipine 5 MG TAB PO SCH (09:12)
[2018-09-07] MEDS: Fenofibrate Nanocrystallized 145 MG TAB PO SCH (09:12)
[2018-09-07] MEDS: Amoxicillin/Potassium Clav 875 MG TAB PO SCH ×2 (09:13→18:08)
[2018-09-07] MEDS: Citalopram 20 MG TAB PO SCH (09:13)
[2018-09-07] MEDS: Estrogens, Conjugated 30 GM TUBE VAG SCH (09:13)
[2018-09-07] MEDS: Folic Acid 1 MG TAB PO SCH (09:13)
[2018-09-07] MEDS: Ketotifen Fumarate 0.025% Ophth Soln 5 ml Bottle EA EYE SCH (09:20)
[2018-09-07] MEDS: HumaLOG 300 UNITS/3 ML VIAL SC PRN ×2 (11:35→18:09)
--- NOTE | 2018-09-07 11:36 | PDOC.PN ---
- Subjective Encounter Start Date: 09/07/18 Encounter Start Time: 11:34 Ms. Colon was seen today in follow-up of sepsis. due to UTI. She does not have any complaints. - Objective Resuscitation Status - Order Detail: 09/01/18 17:05 Resuscitation Status Routine Resuscitation Status: FULL: Full Resuscitation Discussed with: earle DUMONT Reviewed: Yes Vital Signs & Weight: Vital Signs (12 hours) Temp Pulse Resp BP BP Pulse Ox 09/07/18 09:12 90 09/07/18 08:00 99.1 F 90 18 148/88 H 96 09/07/18 03:51 98.5 F 73 18 96/55 L 94 L Weight Weight 154 lb 14.4 oz I&O: 09/06/18 09/07/18 09/08/18 06:59 06:59 06:59 Intake Total 600 2270 Output Total 1400 1975 Balance -800 295 Result Diagrams: 09/07/18 04:38 09/06/18 04:51 Additional Labs: Accuchecks 09/07/18 09/07/18 09/06/18 10:50 05:37 20:39 POC Glucose 200 H 91 177 H 09/06/18 16:49 POC Glucose 193 H Phys Exam - Physical Examination HEENT: PERRLA Respiratory: no wheezing, no rales, no rhonchi, clear to auscultation bilateral Cardiovascular: RRR, no significant murmur, no rub Gastrointestinal: soft, positive bowel sounds + mildly distended Musculoskeletal: no edema, pulses present Dx/Plan (1) Sepsis secondary to UTI Code(s): A41.9 - SEPSIS, UNSPECIFIED ORGANISM; N39.0 - URINARY TRACT INFECTION, SITE NOT SPECIFIED Status: Acute (2) DM type 2 (diabetes mellitus, type 2) Status: Chronic (3) Dementia Code(s): F03.90 - UNSPECIFIED DEMENTIA WITHOUT BEHAVIORAL DISTURBANCE Status: Chronic (4) Essential hypertension Code(s): I10 - ESSENTIAL (PRIMARY) HYPERTENSION Status: Chronic - Plan * UTI due to enterococcus UTI- will discharge her on a 2 week course of Augmentin * Urinary retention- Turner will be left in place post discharge as per Urology recommendations * Stable for discharge.
[2018-09-07 16:34] VITALS: BP 131/70; TEMP 98.5
[2018-09-07] MEDS: Atorvastatin Calcium 20 MG TAB PO SCH (18:08)
[2018-09-07] MEDS: Ezetimibe 10 MG TAB PO SCH (18:08)
--- NOTE | 2018-09-07 23:22 | DIS ---
DATE OF ADMISSION: 09/01/2018 DATE OF DISCHARGE: 09/07/2018 PRIMARY CARE PHYSICIAN: Dr. Quincy Mcneill. DISCHARGE DISPOSITION: [facility]. DISCHARGE DIAGNOSES: 1. Urinary tract infection with sepsis due to enterococcus. 2. Dementia. 3. Depression. 4. Diabetes mellitus type 2. 5. Hypertension. 6. History of schizophrenia. 7. Urinary retention with chronic indwelling Turner. DISCHARGE MEDICATIONS: 1. Premarin cream 2 g intravaginally twice a day. 2. Augmentin 875 mg twice a day. 3. Trazodone 150 mg at bedtime. 4. Florastor 250 mg daily. 5. Tramadol 300 mg extended release daily. 6. Cozaar 50 mg daily. 7. Claritin 10 mg daily. 8. Ketotifen eye drops twice a day. 9. Haloperidol decanoate 100 mg q.month. 10. Folic acid 1 mg daily. 11. Fenofibrate 150 mg daily. 12. Zetia 10 mg at bedtime. 13. Depakote extended release 500 mg twice daily. 14. Citalopram 20 mg daily. 15. Cogentin 1 mg twice a day. 16. Lipitor 20 mg at bedtime. 17. Amlodipine 5 mg daily. CODE STATUS: Full code. ALLERGIES: NO KNOWN DRUG ALLERGIES. HOSPITAL COURSE: Ms. Colon is a pleasant 73-year-old female, who was sent over from the [facility] due to abnormalities in her lab work. She was noted to have acute kidney injury. She was evaluated and found to have urinary retention as well as urinary tract infection. She was started on IV antibiotics and Urology was consulted. A Turner catheter was placed and it is recommended that she continue with the Turner catheter placement at discharge. It is felt that some of the urinary retention could be due to atrophic vaginitis with a possible mild urethral stricture as a result of this. Her urine culture from an outside source grew enterococcus and it was recommended that she be placed on Augmentin for a 2-week course. Job ID: [id number]
--- NOTE | 2018-09-09 07:56 | PQF ---
[employer] Associate Application Developer Crystal Reports Winform Viewer HUGO STEPHENS TONI MD [id number] LARS CABALLERO [id number] CLINICAL DOCUMENTATION CLARIFICATION FORM: POST DISCHARGE Addendum to original discharge summary date: ____ Late entry note date: __ DATE: 09-09-2018 ATTN: Supa Blum Please exercise your independent, professional judgment in responding to the clarification form. Clinical indicators are provided on the bottom of this form for your review Can you please specify if the chronic indwelling salazar catheter was the cause of UTI? Please check appropriate box(s): [ X ] Sepsis due to UTI is a complication of chronic indwelling salazar catheter [ ] Sepsis due to UTI is not a complication chronic indwelling salazar catheter [ ] Other diagnosis please specify [ ] Unable to determine CLINICAL INDICATORS: H&P 09/01 pg3 Urinary Tract Infection Consult 09/[address] Gimenez Urinary retention Consult 09/[address] Gimenez pparent obstructive uropathy associated with renal insufficiency. Consult 09/[address] Gimenez Salazar catheter found in place, it is draining straw-colored clear urine with a good productive rate, produced over 2 L since catheter placement consistent with the patient retention history and findings on previous CT scan Consult 09/[address] Gimenez I would recommend leaving this salazar catheter in place at discharge and this maybe remove in my office. PN 08/[address] Gray Sepsis most likely due to urinary tract infection caused by enterococcus based on the urine culture. RISK FACTORS: Outlet Obstruction, likely urethral stricture secondary to low estrogen-Consult Dr. Gimenez 07/04 pg4 UTI with sepsis due to enterococcus- DS pg1 Urinary retention with chronic indwelling Salazar-DS pg1 TREATMENT: CT Scan-H&P Urology Consultation Vancomycin Hcl IV 1 gm-MAR Rocephin IV 1 gm-MAR (This form is maintained as a part of the permanent medical record) 2014 [employer]. All Rights Reserved Julia [email or web address] [not provided] MTDD
--- NOTE | 2018-09-09 08:05 | PQF ---
[employer] Pulmonary Function Technician Crystal Reports Winform Viewer HUGO COLON SUPA QURESHI MD [id number] [facility] [id number] CLINICAL DOCUMENTATION CLARIFICATION FORM: POST DISCHARGE Addendum to original discharge summary date: ____ Late entry note date: __ DATE: 09-09-2018 ATTN: Supa Blum Please exercise your independent, professional judgment in responding to the clarification form. Clinical indicators are provided on the bottom of this form for your review Can you please specify whether Pneumonia is ruled in or ruled out during this encounter? Please check appropriate box(s) to clarify if the following diagnosis has been ruled in or ruled out: Pneumonia [ ] Ruled in diagnosis [ ] Continue to treat [ ] Resolved [ X ] Ruled out diagnosis [ ] Cannot rule out diagnosis [ ] Other diagnosis please specify: [ ] Unable to determine For continuity of documentation, please document condition throughout progress notes and discharge summary. Thank You. CLINICAL INDICATORS: H&P 09/01 pg1 Sepsis Ms. Colon is presenting with sepsis, most likely secondary to urinary tract infection as well as Pneumonia. Consultation 09/[address] Pernell VALDES Lungs: Clear to auscultation bilaterally PN 09/[address] Gray Possible Pneumonia, right lung PN 09/[address] Gray We will do the chest x-ray today and she is not hypoxic, but most likely she has some infectious process in her right lung PN 09/[address] Gray No evidence of Pneumonia on the current X-ray Chest X-ray 09/04 : Impression: No evidence of acute pulmonary disease Laboratory WBC= 11.3 (09/01), 12.3 (09/02) 14.0 (09/03), 15.4 (09/04), 13.7 () RISK FACTOR: Urinary tract infection with sepsis due to enterococcus- DS pg1 Diabetes Mellitus type 2-DS pg1 TREATMENTS: Chest X-ray Rocephin IV 1grm -MAR Vancomycin Hcl 1 gm-MAR Rocephin 1 grm IV-MAR (This form is maintained as a part of the permanent medical record) 2014 [employer], [employer]. All Rights Reserved Julia [email or web address] ([email or web address] [not provided] MTDD
== END 2018-09-07 18:45 | DRG 698 ==
LOC: ERS 13:13 → ERHOLD 15:35 → 2NO 09-02 16:05
PROVIDERS: ADMIT Internal Medicine; ATTEND Internal Medicine
DX: T83.511A Infection and inflammatory reaction due to indwelling urethral catheter, initial encounter (principal); A41.81 Sepsis due to Enterococcus; N17.9 Acute kidney failure, unspecified; M19.90 Unspecified osteoarthritis, unspecified site; E11.9 Type 2 diabetes mellitus without complications; K21.9 Gastro-esophageal reflux disease without esophagitis; I10 Essential (primary) hypertension; R33.9 Retention of urine, unspecified; R41.841 Cognitive communication deficit; N13.9 Obstructive and reflux uropathy, unspecified; F20.9 Schizophrenia, unspecified; N95.2 Postmenopausal atrophic vaginitis; D64.9 Anemia, unspecified; E78.00 Pure hypercholesterolemia, unspecified; F31.9 Bipolar disorder, unspecified; N35.92 Unspecified urethral stricture, female; Y84.6 Urinary catheterization as the cause of abnormal reaction of the patient, or of later complication, without mention of misadventure at the time of the procedure; Z79.899 Other long term (current) drug therapy; Z98.51 Tubal ligation status
CPT/HCPCS: 36415; 36416; 51702; 71045; 80048; 80053; 80202; 83605; 83735; 85025; 87324; 87449; 96361; 96365; J0696; J1956; J3370; J3486; J3490